=== PATIENT | male | born 2000 | race African-American/Black ===

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

== ENCOUNTER 2021-02-09 11:24 | Outpatient (CLI) | payer OTHER | END 2021-02-09 20:48 | disposition home or self-care (01) | LOC: RAD 11:24 | PROVIDERS: ATTEND Physician Assistant | DX: M25.561 Pain in right knee (principal); M25.562 Pain in left knee ==